=== PATIENT | male | born 1980 | race Caucasian/White ===

== ENCOUNTER 2020-06-05 12:02 | Day surgery (SDC) | payer OTHER ==
--- NOTE | 2020-06-02 13:54 | HP ---
DATE OF SURGERY: 06/05/2020 HISTORY OF PRESENT ILLNESS: The patient is a 39 year old has a lesion area on his left arm that had been cut off twice and keeps recurring over the past two years. No known injury. Nonhealing exophytic lesion on his left forearm in need of excisional biopsy. PAST MEDICAL HISTORY: He denies any chronic illnesses. PAST SURGICAL HISTORY: None other than having the lesion cut off twice in the past. MEDICATIONS: None. ALLERGIES: NKDA. FAMILY HISTORY: Breast cancer. SOCIAL HISTORY: No smoking or alcohol abuse. REVIEW OF SYSTEMS: Fourteen systems reviewed. No chest pain or palpitations. Other systems negative or noncontributory as above and per preadmission questionnaire. PHYSICAL EXAMINATION: GENERAL: No acute distress. HEENT: Sclerae nonicteric. NECK: No JVD. CHEST: Equal excursion, nonlabored breathing. CVS: Regular rate and rhythm. ABDOMEN: Soft. No peritoneal signs. EXTREMITIES: No edema. He does have nonhealing exophytic lesion on his left forearm of indeterminate behavior. PSYCH: Appropriate mood and affect. IMPRESSION: Persistent nonhealing lesion left forearm lesion of indeterminate behavior as it is nonhealing and persistent needs excisional biopsy of forearm lesion possible skin graft. Risks and benefits explained in detail but not limited to bleeding or infection, risk of nonhealing of the wound possibly requiring other procedure, healing by secondary intent, risk of nonhealing or failure to take the graft possibly requiring other procedures or healing by secondary intent. Risk if this is malignancy with involved margins possibly requiring other procedures or treatments. He understands and agrees to the planned procedure, will proceed with excisional biopsy of nonhealing left forearm lesion of indeterminate behavior possible skin graft as an outpatient.
[~2020-06-05 12:02] MED LIST: Lactated Ringers 1,000 ML IV ONE; Lactated Ringers 1,000 ML IV SCH; MINERAL OIL LIGHT 10 ML FOR SURGERY ONE; Sensorcaine 0.25% 10 ML ONE
[2020-06-05] MEDS ORDERED: SUBLIMAZE 100 MCG/2 ML ONE (14:05)
[2020-06-05] MEDS ORDERED: Xylocaine-Mpf 2% 5 Ml Vial ONE (14:05)
[2020-06-05] MEDS ORDERED: Decadron 4 MG INJ ONE (14:05)
[2020-06-05] MEDS ORDERED: Zofran 4 MG/2 ML VIAL ONE (14:05)
[2020-06-05] MEDS ORDERED: TORAdol 30 mg Injection ONE ×2 (14:05)
[2020-06-05] MEDS ORDERED: DIPRIVAN 200 MG/20 ML IV ONE (14:05)
[2020-06-05] MEDS ORDERED: KEFZOL 1 GM ONE (14:18)
[2020-06-05] MEDS ORDERED: PHENYLEPHRINE HCL ONE (14:25)
[2020-06-05 16:13] VITALS: O2SAT 97
[2020-06-05 16:14] VITALS: BP 116/71; PULSE 79
--- NOTE | 2020-06-06 11:40 | OP ---
SURGERY DATE/TIME: 06/05/2020 1014 PREOPERATIVE DIAGNOSIS: Nonhealing left arm lesion indeterminate behavior. POSTOPERATIVE DIAGNOSIS: Nonhealing left arm lesion indeterminate behavior. PROCEDURE: Excisional biopsy nonhealing left forearm lesion of indeterminate behavior (approximately 2.5 cm with margins) with advancement flap closure. SURGEON: Dr. Moses Cifuentes. ANESTHESIA: General. ESTIMATED BLOOD LOSS: Minimal. INDICATIONS: As noted above. Risks and benefits explained in detail and not limited to and consent obtained. DESCRIPTION OF PROCEDURE AND FINDINGS: The patient is taken to the operating room. General anesthesia induced. Prepped and draped in usual sterile fashion. After official time out and no disagreement with planned procedure, marking out to normal appearing skin on either side of this area. It had a little bit of halo around this exophytic lesion. Dissecting down to normal appearing skin that he had available that resulted in about 2.5 cm wide spindle-shaped fashion. The spindle-shaped excision about 6.5 cm long. Dissection carried down to normal appearing subcutaneous tissue and fascia beneath dissecting off the underlying fascia. Specimen passed off. Lesion with margins is 2.5 cm. The flaps were undermined on either side and then advanced back to the midline with some interrupted 2-0 and 3-0 Vicryl. The skin closed with interrupted vertical mattress with 3-0 Prolene. Sterile dressing was applied. The patient tolerated the procedure well. There were no immediate complications. There was no family here to discuss the findings with at this time. He should keep the arm elevated at rest, ice pack PRN. He is to follow up in the office next week for biopsy results. The part of the sutures may need to stay in an extra week.
== END 2020-06-05 16:36 | disposition home or self-care (01) ==
LOC: SDC 12:02
PROVIDERS: ATTEND Surgery
DX: D23.62 Other benign neoplasm of skin of left upper limb, including shoulder (principal)
CPT/HCPCS: J0690; J1100; J1885; J2370; J2405; J2704; J3010; A9270-GY

== ENCOUNTER 2022-03-28 14:19 | Emergency (ER) | payer OTHER ==
[2022-03-28 14:39] VITALS: BP 123/77; PULSE 80; O2SAT 96
[2022-03-28] MEDS ORDERED: XYLOCAINE 1% HCL 20 ML MDV ONE (14:48)
[2022-03-28] MEDS ORDERED: XYLOCAINE 1% HCL 20 ML MDV IJ ONE (14:48)
[2022-03-28] MEDS ORDERED: Adacel Vial IM ONE ×2 (14:48→14:49)
--- NOTE | 2022-03-28 15:11 | ERPHSYRPT ---
- History of Present Illness Source: patient Exam Limitations: no limitations Patient Subjective Stated Complaint: Pt cut his left back of hand with a utility knife last night at approx 2000, approx 3 cm lacertion Triage Nursing Assessment: Pt brought self to the ER, vitals wnl, rates pain as 3/10, approx 3 cm laceration to the back of the hand between the thumb and the pointer finger, cut with a utility knife with a new clean blade, pulses normal, denies any other problems at this time Physician History: 3cm lac L dorsal hand proximal to 1st digit. Wound bleeding when pressure not held. Laceration per paper box maker at 20:00 last night. He has good distal capillary return and sensation. Tdap needs to be updated. Occurred: yesterday Method of Injury: incised Severity of Pain-Max: mild Severity of Pain-Current: mild Extremities Pain Location: hand: left Modifying Factors: Improves With: movement Associated Symptoms: none Allergies/Adverse Reactions: No Known Drug Allergies Allergy (Verified 03/28/22 14:39) Hx Tetanus, Diphtheria Vaccination/Date Given: No Travel Risk - International Travel Have you traveled outside of the country in past 3 weeks: No - Coronavirus Screening Are you exhibiting any of the following symptoms?: No Close contact with a COVID-19 positive Pt in past 14-21 Days: No - Vaccine Status Have you recieved a Covid-19 vaccination: No - Review of Systems Constitutional: No Symptoms Eyes: No Symptoms Ears, Nose, & Throat: No Symptoms Respiratory: No Symptoms Cardiac: No Symptoms Abdominal/Gastrointestinal: No Symptoms Genitourinary Symptoms: No Symptoms Skin: No Symptoms Neurological: No Symptoms Psychological: No Symptoms Endocrine: No Symptoms Hematologic/Lymphatic: No Symptoms Immunological/Allergic: No Symptoms - Past Medical History Pertinent Past Medical History: No Neurological History: No Pertinent History ENT History: No Pertinent History Cardiac History: No Pertinent History Respiratory History: No Pertinent History Endocrine Medical History: No Pertinent History Musculoskeletal History: No Pertinent History GI Medical History: No Pertinent History History: No Pertinent History Psycho-Social History: No Pertinent History Male Reproductive Disorders: No Pertinent History - Past Surgical History Past Surgical History: Yes Neuro Surgical History: No Pertinent History Cardiac: No Pertinent History Respiratory: No Pertinent History Gastrointestinal: No Pertinent History Genitourinary: No Pertinent History Musculoskeletal: Other Male Surgical History: No Pertinent History Other Surgical History: carpal tunnel left - Social History Smoking Status: Never smoker Exposure to second hand smoke: Yes Drug Use: none Patient Lives Alone: No - Nursing Vital Signs Nursing Vital Signs: Initial Vital Signs Temperature 98.4 F 03/28/22 14:30 Pulse Rate 80 03/28/22 14:30 Blood Pressure 123/77 03/28/22 14:30 O2 Sat by Pulse Oximetry 96 03/28/22 14:30 Pain Scale Pain Intensity 3 WNL - Physical Exam General Appearance: no apparent distress Eyes, Ears, Nose, Throat Exam: normal ENT inspection, TMs normal, pharynx normal Neck Exam: normal inspection, non-tender, supple, full range of motion, No Brudzinski, No Kernig's, No meningismus Cardiovascular/Respiratory Exam: normal breath sounds, regular rate/rhythm, heart sounds normal Abdominal Exam: soft Back Exam: normal inspection Shoulder Exam: normal inspection Elbow/Forearm Exam: normal inspection Wrist Exam: normal inspection Hand Exam: laceration (3cm Lac dorsal L hand proximal to 1st digit/good radila pulse, distal sensation, and capillary return/FROM of all digits) Neuro/Tendon Exam: normal sensation, normal motor functions, normal tendon functions, responds to pain, no evidence tendon injury Mental Status Exam: alert, oriented x 3, cooperative Skin Exam: normal color, warm, dry SpO2 Interpretation: normal SpO2: 96 O2 Delivery: Room Air Procedures - Laceration/Wound Repair Left Hand Wound Location: Left, hand Wound Length (cm): 3 Wound's Depth, Shape: superficial, linear Wound Explored: clean Hibiclens Prep: Yes Anesthesia: local, 2% Lidocaine Volume Anesthetic (ccs): 5 Wound Repaired With: sutures Suture Size/Type: 3-0, nylon Number of Sutures: 8 Layer Closure?: No Sterile Dressing Applied?: Yes Splint Applied?: No - Course Nursing assessment & vital signs reviewed: Yes Ordered Tests: Medication Summary Discontinued Medications Generic Name Dose Route Start Last Admin Trade Name Freq PRN Reason Stop Dose Admin Diphtheria/Tetanus/Acell Pertussis 0.5 ml 03/28/22 14:48 03/28/22 14:50 Tdap --Diph,Pertuss(Acell),Tet Vac/Pf 0.5 Ml Vial IM 03/28/22 14:49 0.5 ml .ONCE ONE Administration Diphtheria/Tetanus/Acell Pertussis Confirm 03/28/22 14:49 Tdap --Diph,Pertuss(Acell),Tet Vac/Pf 0.5 Ml Vial Administered 03/28/22 14:50 Dose 0.5 ml IM .STK-MED ONE Lidocaine HCl 5 ml 03/28/22 14:48 03/28/22 14:51 Lidocaine Hcl 1% 20 Ml Mdv 20 Ml Ml IJ 03/28/22 14:49 5 ml STAT ONE Administration Lidocaine HCl Confirm 03/28/22 14:48 Lidocaine Hcl 1% 20 Ml Mdv 20 Ml Ml Administered 03/28/22 14:49 Dose 5 ml .ROUTE .STK-MED ONE - Progress Progress: improved Progress Note: 03/28/22 15:11 Tdap Wound sutured because of continued bleeding and 3cm size Pt alerted infection risk higher due to delay in presentation Counseled pt/family regarding: diagnosis, need for follow-up - Departure Departure Disposition: Home Clinical Impression: Hand laceration Condition: Stable Critical Care Time: No Referrals: DOCTOR,NO FAMILY [Primary Care Provider] - Follow up/PCP as directed Instructions: Laceration Repair With Stitches (DC) Additional Instructions: Keep laceration dry for 2 days, then wash gently 1-2 times a day with soap/water Sutures out in 10 days Watch for signs of infection-increasing redness/Increasing pain/pus/temperature greater than 100.5 Prescriptions: Amox Tr/Potass Clav. 875 mg [Augmentin 875-125 Tablet] 875 mg PO BID #20 tablet
== END 2022-03-28 15:34 | disposition home or self-care (01) ==
LOC: ED 14:19
DX: S61.412A Laceration without foreign body of left hand, initial encounter (principal); W26.0XXA Contact with knife, initial encounter; Z28.310 Unvaccinated for COVID-19
CPT/HCPCS: 12002; 90471; 90715; 96372; 99284

== ENCOUNTER 2024-04-07 21:01 | Emergency (ER) | payer OTHER ==
[2024-04-07] MEDS ORDERED: XYLOCAINE 1% HCL 20 ML MDV IJ ONE (21:02)
[2024-04-07 21:26] VITALS: TEMP 98.2
--- NOTE | 2024-04-07 21:46 | ERPHSYRPT ---
- History of Present Illness Time Seen by Provider: 04/07/24 21:42 Source: patient Exam Limitations: no limitations Patient Subjective Stated Complaint: leg swelling x2 days Triage Nursing Assessment: pt ambulatory to bed by self, father at bedside, pt alert and oriented x3, pt c/o bilateral leg swelling since friday, pt R leg noticibly more swollen than L, pt has abrasion on R lower leg from a fall about a week ago, pt states he did elevate his legs today for about 2 hrs, +2 bilateral pedal pulses, pt denies any pain Physician History: 43-year-old male presents to our ED for evaluation of bilateral lower leg swell ing. Patient observed the swelling approximately 2 days ago. Swelling has been progressive. No trauma no fever. Patient denies any significant past medical history. No cardiac renal or hepatic problems to speak of. Patient denies shortness of breath. Patient denied pain however positive Homans' sign right lower extremity. Patient denies a history of the same. No history of PE DVT. Father at bedside. They voiced no other complaints or concerns at this time. Portions of this note were created with voice recognition technology. There may be grammatical, spelling, punctuation or sound alike errors Timing/Duration: day(s) (2 days) Severity: moderate Modifying Factors: Improves With: nothing Associated Symptoms: denies symptoms Allergies/Adverse Reactions: No Known Drug Allergies Allergy (Verified 04/07/24 21:19) Hx Tetanus, Diphtheria Vaccination/Date Given: No Hx Influenza Vaccination/Date Given: No Hx Pneumococcal Vaccination/Date Given: No Travel Risk - International Travel Have you traveled outside of the country in past 3 weeks: No - Emerging Infectious Disease Are you exhibiting symptoms associated with any current EIDs: No - Review of Systems Constitutional: No Symptoms, No Fever, No Chills Eyes: No Symptoms Ears, Nose, & Throat: No Symptoms Respiratory: No Symptoms, No Cough, No Dyspnea Cardiac: No Symptoms, No Chest Pain, No Edema, No Syncope Abdominal/Gastrointestinal: No Symptoms, No Abdominal Pain, No Nausea, No Vomiting, No Diarrhea Genitourinary Symptoms: No Symptoms, No Dysuria Musculoskeletal: No Symptoms, No Back Pain, No Neck Pain Skin: No Symptoms, No Rash Neurological: No Symptoms, No Dizziness, No Focal Weakness, No Sensory Changes Psychological: No Symptoms Endocrine: No Symptoms Hematologic/Lymphatic: No Symptoms Immunological/Allergic: No Symptoms All Other Systems: Reviewed and Negative - Past Medical History Pertinent Past Medical History: No Neurological History: No Pertinent History ENT History: No Pertinent History Cardiac History: No Pertinent History Respiratory History: No Pertinent History Endocrine Medical History: No Pertinent History Musculoskeletal History: No Pertinent History GI Medical History: No Pertinent History History: No Pertinent History Psycho-Social History: No Pertinent History Male Reproductive Disorders: No Pertinent History - Past Surgical History Past Surgical History: Yes Neuro Surgical History: No Pertinent History Cardiac: No Pertinent History Respiratory: No Pertinent History Gastrointestinal: No Pertinent History Genitourinary: No Pertinent History Musculoskeletal: Other Male Surgical History: No Pertinent History Other Surgical History: carpal tunnel bilateral, basal cyst removed- L hand - Social History Smoking Status: Never smoker Exposure to second hand smoke: No Drug Use: none Patient Lives Alone: No - Social Determinants of Health Will the patient participate in the screening: Yes Do you worry about a steady place to live?: No Do you have any problems with any of the following?: No known problems In the past 12 months,have you had to go without utilities?: No Transportation Issues: No Has anyone in your support network made you feel unsafe?: No Have you or anyone in your house had to go without enough: No - Nursing Vital Signs Nursing Vital Signs: Initial Vital Signs Pulse Rate 68 04/07/24 21:19 Respiratory Rate 16 04/07/24 21:19 Blood Pressure 134/77 04/07/24 21:19 O2 Sat by Pulse Oximetry 97 04/07/24 21:19 Pain Scale Pain Intensity 0 - Physical Exam General Appearance: no apparent distress, alert Eye Exam: PERRL/EOMI, eyes nml inspection Ears, Nose, Throat Exam: normal ENT inspection, TMs normal, pharynx normal, moist mucous membranes Neck Exam: normal inspection, non-tender, supple, full range of motion Respiratory Exam: normal breath sounds, lungs clear, airway intact, No respiratory distress Cardiovascular Exam: regular rate/rhythm, normal heart sounds, normal peripheral pulses Gastrointestinal/Abdomen Exam: soft, normal bowel sounds, No tenderness, No mass Back Exam: normal inspection, normal range of motion, No CVA tenderness, No vertebral tenderness Extremity Exam: normal inspection, normal range of motion, pelvis stable, mckinley's sign, swelling (2+ pitting edema right leg 1+ pitting edema left leg.), other (2+ pitting edema bilateral lower extremities. The anterior aspect of the right leg has a healing wound. Early cellulitis.) Neurologic Exam: alert, oriented x 3, cooperative, normal mood/affect, sensation nml, No motor deficits Skin Exam: normal color, warm, dry, No rash Lymphatic Exam: No adenopathy SpO2 Interpretation: normal SpO2: 97 O2 Delivery: Room Air - Course Nursing assessment & vital signs reviewed: Yes - Radiology Ultrasound Exam Venous Lower Extremity Ultrasound: discussed w/radiologist (Bilateral lower extremity venous ultrasound negative for DVT.) Ordered Tests: Active Orders 24 hr Category Date Time Status Chemical Processing Technician STAT Care 04/07/24 21:38 Active EKG-ER Only STAT Care 04/07/24 21:36 Active IV Insertion STAT Care 04/07/24 21:36 Active Pulse Oximetry (ED) STAT Care 04/07/24 21:36 Active VENOUS BILATERAL EXTREMITY [US] Stat Exams 04/07/24 21:42 Taken CBC W DIFF Stat Lab 04/07/24 21:45 Completed CMP Stat Lab 04/07/24 21:45 Completed NT PRO BNPII Stat Lab 04/07/24 21:45 Completed TROPONIN Q4H Lab 04/07/24 21:45 Completed TROPONIN Q4H Lab 04/08/24 05:45 Ordered TROPONIN Stat Lab 04/07/24 23:35 Completed UA W/RFX UR CULTURE Stat Lab 04/07/24 23:40 Completed Medication Summary Discontinued Medications Generic Name Dose Route Start Last Admin Trade Name Freq PRN Reason Stop Dose Admin Ceftriaxone Sodium 1,000 mg 04/08/24 00:46 04/08/24 00:51 Ceftriaxone Sodium 1000 Mg Inj Vial IM 04/08/24 00:47 1,000 mg STAT ONE Administration Ceftriaxone Sodium Confirm 04/08/24 00:48 Ceftriaxone Sodium 1000 Mg Inj Vial Administered 04/08/24 00:49 Dose 1,000 mg .ROUTE .STK-MED ONE Lab/Rad Data: Laboratory Result Diagrams 04/07/24 21:45 04/07/24 21:45 Laboratory Results 04/07/24 04/07/24 04/07/24 Range/Units 23:40 23:35 21:45 WBC (4.23-9.07) x10^3/uL RBC (4.63-6.08) x10^6/uL Hgb (13.7-17.5) g/dL Hct (40.1-51.0) % MCV (79.0-92.2) fL MCH (25.7-32.2) pg MCHC (32.3-36.5) g/dL RDW (11.6-14.4) % Plt Count (163-337) x10^3/uL MPV (9.4-12.4) fL Gran % (34.0-67.9) % Immature Gran % (Auto) (0.001-0.429) % Nucleat RBC Rel Count (0.00-0.2) % Eos # (Auto) (0.04-0.54) x10^3/uL Immature Gran # (Auto) (0.001-0.031) x10^3u/L Absolute Lymphs (auto) (1.32-3.57) x10^3/uL Absolute Monos (auto) (0.30-0.82) x10^3/uL Absolute Nucleated RBC (0.00-0.012) x10^3u/L Lymphocytes % (21.8-53.1) % Monocytes % (5.3-12.2) % Eosinophils % (0.8-7.0) % Basophils % (0.2-1.2) % Absolute Granulocytes (1.78-5.38) x10^3/uL Basophils # (0.01-0.08) x10^3/uL Sodium (135-145) mmol/L Potassium (3.5-5.1) mmol/L Chloride (98-107) mmol/L Carbon Dioxide (22-30) mmol/L Anion Gap (5-15) MEQ/L BUN (9-20) mg/dL Creatinine (0.66-1.25) mg/dL Estimated GFR ML/MIN Glucose (74-106) mg/dL Calcium (8.4-10.2) mg/dL Total Bilirubin (0.2-1.3) mg/dL AST (17-59) U/L ALT (0-50) U/L Alkaline Phosphatase (38-126) U/L Troponin I 0.022 (0.000-0.033) ng/mL NT-Pro-B Natriuret Pep 74.8 (<300) pg/mL Serum Total Protein (6.3-8.2) g/dL Albumin (3.5-5.0) g/dL Urine Color Yellow (Yellow) Urine Appearance Clear (Clear) Urine pH 5.5 (4.6-8.0) Ur Specific [address] 1.020 (1.005-1.030) Urine Protein Negative (Negative) Urine Glucose (UA) Negative (Negative) mg/dL Urine Ketones Negative (Negative) Urine Blood Negative (Negative) Urine Nitrite Negative (Negative) Urine Bilirubin Negative (Negative) Urine Urobilinogen 2.0 A (0.2) mg/dL Ur Leukocyte Esterase Negative (Negative) U Hyaline Cast (Auto) NONE SEEN (0-2) /LPF Urine Microscopic RBC 0-2 (0-5) /HPF Urine Microscopic WBC 0-2 (0-5) /HPF Ur Epithelial Cells None Seen (None Seen) /HPF Urine Bacteria None Seen (None Seen) /HPF Urine Culture Reflexed NO (NO) 04/07/24 04/07/24 04/07/24 Range/Units 21:45 21:45 21:45 WBC 6.0 (4.23-9.07) x10^3/uL RBC 4.71 (4.63-6.08) x10^6/uL Hgb 13.8 (13.7-17.5) g/dL Hct 40.7 (40.1-51.0) % MCV 86.4 (79.0-92.2) fL MCH 29.3 (25.7-32.2) pg MCHC 33.9 (32.3-36.5) g/dL RDW 12.7 (11.6-14.4) % Plt Count 151 L (163-337) x10^3/uL MPV 8.5 L (9.4-12.4) fL Gran % 56.9 (34.0-67.9) % Immature Gran % (Auto) 0.3 (0.001-0.429) % Nucleat RBC Rel Count 0.0 (0.00-0.2) % Eos # (Auto) 0.06 (0.04-0.54) x10^3/uL Immature Gran # (Auto) 0.02 (0.001-0.031) x10^3u/L Absolute Lymphs (auto) 1.72 (1.32-3.57) x10^3/uL Absolute Monos (auto) 0.79 (0.30-0.82) x10^3/uL Absolute Nucleated RBC 0.00 (0.00-0.012) x10^3u/L Lymphocytes % 28.5 (21.8-53.1) % Monocytes % 13.1 H (5.3-12.2) % Eosinophils % 1.0 (0.8-7.0) % Basophils % 0.2 (0.2-1.2) % Absolute Granulocytes 3.44 (1.78-5.38) x10^3/uL Basophils # 0.01 (0.01-0.08) x10^3/uL Sodium 136 (135-145) mmol/L Potassium 3.6 (3.5-5.1) mmol/L Chloride 103 (98-107) mmol/L Carbon Dioxide 27 (22-30) mmol/L Anion Gap 9.7 (5-15) MEQ/L BUN 17 (9-20) mg/dL Creatinine 1.18 (0.66-1.25) mg/dL Estimated GFR 79.5 ML/MIN Glucose 103 (74-106) mg/dL Calcium 8.3 L (8.4-10.2) mg/dL Total Bilirubin 0.80 (0.2-1.3) mg/dL AST 22 (17-59) U/L ALT 22 (0-50) U/L Alkaline Phosphatase 77 (38-126) U/L Troponin I 0.020 (0.000-0.033) ng/mL NT-Pro-B Natriuret Pep (<300) pg/mL Serum Total Protein 6.3 (6.3-8.2) g/dL Albumin 3.7 (3.5-5.0) g/dL Urine Color (Yellow) Urine Appearance (Clear) Urine pH (4.6-8.0) Ur Specific [address] (1.005-1.030) Urine Protein (Negative) Urine Glucose (UA) (Negative) mg/dL Urine Ketones (Negative) Urine Blood (Negative) Urine Nitrite (Negative) Urine Bilirubin (Negative) Urine Urobilinogen (0.2) mg/dL Ur Leukocyte Esterase (Negative) U Hyaline Cast (Auto) (0-2) /LPF Urine Microscopic RBC (0-5) /HPF Urine Microscopic WBC (0-5) /HPF Ur Epithelial Cells (None Seen) /HPF Urine Bacteria (None Seen) /HPF Urine Culture Reflexed (NO) - Progress Progress: improved Progress Note: 43-year-old male presents to our ED for evaluation of swelling to both legs. On physical exam right leg is more swollen than the left. 2+ pitting edema right leg 1+ pitting edema left leg. Patient received 1 g IM dose of Rocephin. Prescription for Bactrim forwarded to patient's pharmacy. Patient agrees to follow-up with his primary care doctor within 48 hours for reevaluation. The remaining of his workup was essentially nonremarkable. BNP within normal limits. BUN and creatinine are within normal limits. Albumin levels are within normal limits. UA negative. No proteinuria. Portions of this note were created with voice recognition technology. There may be grammatical, spelling, punctuation or sound alike errors Complexity of problem addressed is moderate acute complicated. No critical care time. Complexity of data reviewed and analyzed is moderate. Test ordered test reviewed results analyzed and correlated clinically with history and physical exam. Risk of complication and or risk of morbidity/mortality patient management is moderate. A [facility]. Vital stable. Time spent to discharge patient is approximately 20 minutes. Plan of care established for shared decision making. Patient will follow-up with his family doctor within 48 hours for evaluation. Patient voices no other complaints or concerns at this time. Portions of this note were created with voice recognition technology. There may be grammatical, spelling, punctuation or sound alike errors Bilateral IRIS hose is applied to help with lower extremity swelling. Counseled pt/family regarding: lab results, diagnosis, need for follow-up - Departure Departure Disposition: Home Clinical Impression: Bilateral leg swelling, Cellulitis of right leg Condition: Stable Critical Care Time: No Referrals: PRIYA ANDERSEN PA [Primary Care Provider] - Follow up/PCP as directed Instructions: Dependent Edema (DC) Additional Instructions: Discharge/Care Plan JAYJAY DIAZ was seen on 04/07/24 in the Emergency Room. The patient was counseled regarding Diagnosis,Lab results, Imaging studies, need for follow up and when to return to the Emergency Room. Prescriptions given: Discharge Note I have spoken with the patient and/or caregivers. I have explained the patient's condition, diagnosis and treatment plan based on the information available to me at this time. I have answered the patient's and/or caregiver's questions and addressed any concerns. The patient and/or caregivers have as good understanding of the patient's diagnosis, condition and treatment plan as can be expected at this point. The vital signs have been stable. The patient's condition is stable and appropriate for discharge from the emergency department. The patient will pursue further outpatient evaluation with the primary care physician or other designated or consulting physician as outlined in the discharge instructions. The patient and/or caregivers are agreeable to this plan of care and follow-up instructions have been explained in detail. The patient and/or caregivers have received these instruction. The patient/and or caregivers are aware that any significant change in condition or worsening of symptoms should prompt an immediate return to this or the closest emergency department or call 911. Prescriptions: Smz/Tmp Ds Tablet [Bactrim Ds Tablet] 1 udtab PO BID 7 Days #14 tablet
[2024-04-07 21:50] LABS: Absolute Neutrophil Ct (ANC) 3.44 x10^3/uL (1.78-5.38); BASOPHIL % 0.2 % (0.2-1.2); Basophil (Absolute #) 0.01 x10^3/uL (0.01-0.08); Eosinophil (Absolute #) 0.06 x10^3/uL (0.04-0.54); Hematocrit 40.7 % (40.1-51.0); Hemoglobin 13.8 g/dL (13.7-17.5); IMMATURE GRAN # 0.02 x10^3u/L (0.001-0.031); IMMATURE GRAN % 0.3 % (0.001-0.429); Lymphocyte (Absolute #) 1.72 x10^3/uL (1.32-3.57); Lymphocytes % 28.5 % (21.8-53.1); Mean Cell Volume 86.4 fL (79.0-92.2); Mean Corpuscular Hemoglobin 29.3 pg (25.7-32.2); Mean Corpuscular Hgb Concent. 33.9 g/dL (32.3-36.5); Mean Platelet Volume 8.5 fL (9.4-12.4); Monocyte (Absolute #) 0.79 x10^3/uL (0.30-0.82); Monocytes % 13.1 % (5.3-12.2); Neutrophil % 56.9 % (34.0-67.9); Platelet Count 151 x10^3/uL (163-337); Red Blood Count 4.71 x10^6/uL (4.63-6.08); Red Cell Distribution Width 12.7 % (11.6-14.4)
[2024-04-07 22:03] LABS: ALBUMIN 3.7 g/dL (3.5-5.0); ANION GAP 9.7 MEQ/L (5-15); BILIRUBIN,TOTAL 0.8 mg/dL (0.2-1.3); Calcium 8.3 mg/dL (8.4-10.2); Creatinine 1 1.18 mg/dL (0.66-1.25); EST GLOMERULAR FILTRATION RATE 79.5 ML/MIN; Potassium 3.6 mmol/L (3.5-5.1); Total Protein 6.3 g/dL (6.3-8.2)
[2024-04-07 23:51] LABS: ADD URINE CULTURE? NO (NO); Appearance Clear (Clear); Bacteria None Seen /HPF (None Seen); Bilirubin Negative (Negative); Blood Negative (Negative); Epithelial Cells None Seen /HPF (None Seen); Glucose, Urine Negative (Negative); Hyaline Casts NONE SEEN /LPF (0-2); Ketones Negative (Negative); Leukocyte Esterase Negative (Negative); Nitrite Negative (Negative); Ph 5.5 (4.6-8.0); Protein,Urine Dip Negative (Negative); RBC 0-2 /HPF (0-5); WBC 0-2 /HPF (0-5)
[2024-04-08 00:23] VITALS: BP 99/69; PULSE 53; RESP 18
[2024-04-08] MEDS ORDERED: Rocephin 1000 MG INJ ONE (00:48)
[2024-04-08] MEDS: Rocephin 1000 MG INJ IM ONE (00:51)
[2024-04-08 00:53] VITALS: O2SAT 97
--- NOTE | 2024-04-08 09:08 | XRAY ---
Indication: Bilateral leg pain. Two-dimensional sonogram and color Doppler imaging major venous vessels left and right leg performed. Comparison: None No thrombus seen in the examined deep venous vessels left and right leg including greater saphenous vein. Veins demonstrate normal compressibility. Venous waveforms are normal with and without augmentation. Impression: Left and right legs negative for DVT. Comment: Preliminary report was given.
== END 2024-04-08 00:59 | disposition home or self-care (01) ==
LOC: ED 21:01
DX: M79.89 Other specified soft tissue disorders (principal); L03.115 Cellulitis of right lower limb
CPT/HCPCS: 36415; 80053; 81001; 83880; 84484; 85025; 93005; 93041; 93970; 94760; 96372; 99284; J0696